=== PATIENT | female | born 1995 | race Two or more races ===

== ENCOUNTER 2021-07-29 05:03 | Inpatient (IN) | payer OTHER ==
[~2021-07-29] VITALS: Ht 157.5 cm; Wt 2.7 kg
[2021-07-29] MEDS ORDERED: NIFEDIPINE20 MG PO (10:09)
[2021-07-29] MEDS ORDERED: IRON236 MG (10:10)
[2021-07-29] MEDS ORDERED: PRENATAL TABLE1 EAC3 (10:10)
== END 2021-07-31 13:59 | disposition home or self-care (01) | DRG 787 ==
LOC: LDR 05:03 → O/R 05:03 → SURG-SUITE 05:03 → O/R 12:59 → SURG-SUITE 13:14
PROVIDERS: ADMIT Specialist; ATTEND Specialist
PROC: 4A1HXCZ Monitoring of Products of Conception, Cardiac Rate, External Approach (ICD-10-PCS; 2021-07-29)
PROC: 10D00Z1 Extraction of Products of Conception, Low, Open Approach (ICD-10-PCS; principal; 2021-07-29 15:00)
DX: O36.5930 Maternal care for other known or suspected poor fetal growth, third trimester, not applicable or unspecified (principal); O41.03X0 Oligohydramnios, third trimester, not applicable or unspecified; Z3A.38 38 weeks gestation of pregnancy; Z37.0 Single live birth; Z20.822 Contact with and (suspected) exposure to COVID-19